=== PATIENT | female | born 1995 | race Caucasian/White ===

== ENCOUNTER 2017-11-20 01:10 | Emergency (ER) | payer BC ==
[~2017-11-20] VITALS: Ht 165.1 cm; Wt 49.9 kg
[~2017-11-20 01:10] MED LIST: ESCI10TA55 PO; NORG1TAB7 PO; RTX10V10 IV; SPIR1POW3 MC
--- NOTE | 2017-11-20 01:21 | ED Headache ---
General Chief Complaint: Head/Cervical Problems Stated Complaint: MIGRAINE Source: patient, other Exam Limitations: no limitations History of Present Illness Date Seen by Provider: Nov 20, 2017 Time Seen by Provider: 01:15 Initial Comments Patient presents to the ER in tears with a chief complaint that for about 5 hours now she's had one of her migraine headaches although this once been one of the worst she's ever had. She has a long history of migraine headaches and is followed with a couple different neurologists and never found any combination of medications that has helped. She has been on triptan's in the past and does not feel that they help. She does not have allergies anything. In the last 5 hours she's taken 3 tablets of ibuprofen. She says she vomited since she took them and does not think they helped therefore. She is still nauseated. She has not had any fevers chills, sore throat, cough, runny nose, earache, constitutional symptoms leading up to this headache. She does not get auras. There is nothing different about this headache from her normal headaches other than she says it hurts very bad. She is on oral contraceptives. Spironolactone for acne. She does not take anything prophylactic for her migraine headaches. She is on an antidepressant however. Allergies and Home Medications Allergies Coded Allergies: No Known Drug Allergies (Unverified , 06/13/17) Patient Home Medication List Home Medication List Reviewed: Yes Review of Systems Constitutional: No chills, No diaphoresis, No fever, No malaise Eyes: Denies Blindness, Denies Blurred Vision, Denies Pain; Photophobia Ears, Nose, Mouth, Throat: denies ear pain, denies ear discharge Respiratory: No cough, No dyspnea on exertion, No hemoptysis, No orthopnea, No phlegm, No short of breath Cardiovascular: No chest pain, No edema Gastrointestinal: No abdominal pain, No constipation, No diarrhea; nausea, vomiting Genitourinary: No discharge, No dysuria : No (oral contraceptive pills) Past Hwahqgq-Miieuh-Zojvhi Hx Patient Social History Alcohol Use: Occasionally Uses Alcohol Beverage of Choice: Beer Recreational Drug Use: No Smoking Status: Never a Smoker 2nd Hand Smoke Exposure: No Recent Foreign Travel: No Contact w/Someone Who Travel: No Recent Hopitalizations: No Immunizations Up To Date Tetanus Booster (TDap): Less than 5yrs Seasonal Allergies Seasonal Allergies: Yes Past Medical History Surgeries: Yes Orthopedic Respiratory: No Cardiac: No Neurological: Yes Headaches /Migraines Genitourinary: No Gastrointestinal: No Musculoskeletal: No Endocrine: No HEENT: No Cancer: No Psychosocial: No Integumentary: No Blood Disorders: No Physical Exam Vital Signs Vital Signs - First Documented 11/20/17 01:10 Temp 96.4 Pulse 100 Resp 22 B/P (MAP) 158/49 O2 Delivery Room Air Capillary Refill : General Appearance: mild distress, thin HEENT: PERRL/EOMI, normal ENT inspection, TMs normal, pharynx normal Neck: non-tender, full range of motion, supple, normal inspection Cardiovascular: normal peripheral pulses, regular rate, rhythm, no edema, tachycardia (100-105) Respiratory: chest non-tender, lungs clear, normal breath sounds, no respiratory distress, no accessory muscle use Gastrointestinal: non tender, soft Extremities: normal inspection, no pedal edema, no calf tenderness, normal capillary refill Psychiatric: alert, oriented x 3, other (tearful, anxious) Crainal Nerves: normal hearing, normal speech, PERRL Coordination/Gait: normal gait Motor/Sensory: no motor deficit, no sensory deficit Skin: normal color, diaphoresis Progress/Results/Core Measures My Orders Orders - PERLA GUZMÁN Sumatriptan Injection (Imitrex Injection (11/20/17 01:30) Ketorolac Injection (Toradol Injection) (11/20/17 01:30) Ondansetron Injection (Zofran Injectio (11/20/17 01:30) Prochlorperazine Injection (Compazine In (11/20/17 01:30) Diphenhydramine Injection (Benadryl Inje (11/20/17 01:30) Ondansetron Injection (Zofran Injectio (11/20/17 01:30) Prochlorperazine Injection (Compazine In (11/20/17 01:30) Medications Given in ED Current Medications Medications Dose Ordered Sig/[place]asta Route Start Time Stop Time Status Last Admin Dose Admin Diphenhydramine HCl 25 mg ONCE ONCE IM 11/20/17 01:30 11/20/17 01:31 DC 11/20/17 01:28 25 MG Ketorolac Tromethamine 30 mg ONCE ONCE IM 11/20/17 01:30 11/20/17 01:31 DC 11/20/17 01:29 30 MG Ondansetron HCl 4 mg ONCE ONCE IVP 11/20/17 01:30 11/20/17 01:30 DC 11/20/17 01:28 4 MG Prochlorperazine Edisylate 10 mg ONCE ONCE IV 11/20/17 01:30 11/20/17 01:30 DC 11/20/17 01:28 10 MG Sumatriptan Succinate 6 mg ONCE ONCE SQ 11/20/17 01:30 11/20/17 01:31 DC 11/20/17 01:29 6 MG Vital Signs/I&O 11/20/17 11/20/17 01:10 01:29 Temp 96.4 96.4 Pulse 100 Resp 22 B/P (MAP) 158/49 O2 Delivery Room Air Progress Note #1: Time: 01:27 Progress Note She states this is her usual headache appearance other than just the level of severity. We have reviewed prior notes. Give her Compazine and Zofran for her nausea and migraine as well as we'll trial sumatriptan and give her some ketorolac. We'll give her some Benadryl which may assist with her anxiety as well. Once her nausea is better we'll give her a gram of Tylenol. Would like to see her improve her symptoms given that she is sweating and complaining is the worst headache ever and if she does not have some significant improvement we'll consider looking a little harder for an alternative source of her headache although her history and review of systems does not reveal any evidence of recent illness. Progress Note #2: Time: 01:59 Progress Note On reexamination the patient states her nausea is gone and her headache is immensely helped. She is no longer sweating. She feels much better and is ready to go home and get some sleep. We have decided to give her 10 mg of dexamethasone to try and prevent recurrent migraines. Departure Impression Primary Impression: Migraine Qualified Codes: G43.009 - Migraine without aura, not intractable, without status migrainosus Disposition: HOME, SELF-CARE Condition: Improved Departure-Patient Inst. Decision time for Depature: 02:00 Referrals: [facility] (PCP/Family) Primary Care Physician Patient Instructions: Migraine Headache (DC) Add. Discharge Instructions: Go home and get some sleep. The first sign of a headache coming back take 800 mg of ibuprofen every 8 hours as needed as it as well as thousand milligrams of Tylenol every 8 hours as needed. Follow up your primary care provider and investigate other preventative measures for migraine headache. All discharge instructions reviewed with patient and/or family. Voiced understanding. Work/School Note: Work Release Form Date Seen in the Emergency Department: Nov 20, 2017 Return to Work: Nov 21, 2017 Restrictions: No Restrictions PERLA GUZMÁN Nov 20, 2017 01:21
[2017-11-20] MEDS ORDERED: PROCHLORPERAZINE 10 MG/2ML INJ (COMPAZINE) IM ONE (01:30)
[2017-11-20] MEDS ORDERED: KETOROLAC 30 MG/ML VIAL IM ONE (01:30)
[2017-11-20] MEDS ORDERED: PROCHLORPERAZINE 10 MG/2ML INJ (COMPAZINE) IV ONE (01:30)
[2017-11-20] MEDS ORDERED: SUMAtriptan 6 MG/0.5 ML (IMITREX) INJ SQ ONE (01:30)
[2017-11-20] MEDS ORDERED: diphenhydrAMINE 50 MG/ML INJ (BENADRYL) IM ONE (01:30)
[2017-11-20] MEDS ORDERED: ONDANSETRON 4 MG/2 ML (SDV) Z0FRAN IM ONE (01:30)
[2017-11-20] MEDS ORDERED: ONDANSETRON 4 MG/2 ML (SDV) Z0FRAN IVP ONE (01:30)
[2017-11-20] MEDS ORDERED: DEXAMETHASONE 10 MG/ML (DECADRON) 1 ML VIAL IM ONE (02:00)
[2017-11-20 02:08] VITALS: BP 96/71
== END 2017-11-20 02:08 | disposition home or self-care (01) ==
LOC: EDUNIT# 01:10 → ER 01:12
DX: G43.909 Migraine, unspecified, not intractable, without status migrainosus (principal); Z79.3 Long term (current) use of hormonal contraceptives
CPT/HCPCS: 96372; 99284